=== PATIENT | female | born 1975 | race Caucasian/White ===

== ENCOUNTER 2016-11-18 15:39 | Emergency (ER) | payer OTHER ==
[2016-11-18 16:34] LABS: HEMOGLOBIN 15.8 gm/dl (12.3-15.3); RED BLOOD COUNT 5.08 M/UL (4.00-5.10); WHITE BLOOD COUNT 7.1 K/UL (4.5-11.0)
[2016-11-18 16:57] LABS: BUN/CREATININE RATIO 25 (0-10)
== END 2016-11-18 19:07 | disposition home or self-care (01) ==
LOC: ER1 15:39
PROVIDERS: Emergency Medicine
DX: M79.7 Fibromyalgia (principal); N39.0 Urinary tract infection, site not specified; E11.9 Type 2 diabetes mellitus without complications; I10 Essential (primary) hypertension
CPT/HCPCS: 36415; 80053; 81001; 85025; 86403; 87086; 96365; 99283; J0696; J7050

== ENCOUNTER 2016-12-16 19:50 | Emergency (ER) | payer OTHER | END 2016-12-16 20:42 | disposition home or self-care (01) | LOC: ER1 19:50 | DX: B37.2 Candidiasis of skin and nail (principal); E11.9 Type 2 diabetes mellitus without complications; I10 Essential (primary) hypertension | CPT/HCPCS: 99282 ==

== ENCOUNTER → 2021-01-18 | Outpatient (CLI) | payer OTHER | LOC: SLEEP 15:18 | DX: G47.33 Obstructive sleep apnea (adult) (pediatric) (principal) | CPT/HCPCS: 95811 ==